=== PATIENT | female | born 1945 | race Caucasian/White ===

== ENCOUNTER → 2017-07-30 | Outpatient (CLI) | payer OTHER | LOC: FIMAGING 09:04 | DX: Z12.31 Encounter for screening mammogram for malignant neoplasm of breast (principal) ==

== ENCOUNTER 2017-09-07 22:17 | Emergency (ER) | payer OTHER ==
--- NOTE | 2017-09-07 22:26 | EDPHY ---
H & P Stated Complaint: nausea and vomiting Time Seen by Provider: 09/07/17 22:25 HPI/ROS: HPI The patient presents brought in by ambulance for abdominal pain, nausea and vomiting which began at about 6:00 p.m. Tonight after returning from work. She initially developed intermittent crampy upper abdominal pain and then had about 5-6 episodes of forceful vomiting which was nonbloody and nonbilious. Symptoms continued for several hours and were severe. She called 911. She is transported here by paramedics. She received Zofran 4 mg ODT and now is feeling much better. She currently denies any nausea, vomiting, abdominal pain. She has not had any fever or diarrhea. She has not any chest pain or shortness of breath. She denies any sick contacts, new medications, recent travel.. REVIEW OF SYSTEMS Constitutional: No fever, no chills. Eyes: No discharge. ENT: No sore throat. Cardiovascular: No chest pain, no palpitations. Respiratory: No cough, no shortness of breath. Gastrointestinal: See HPI Genitourinary: No hematuria. Musculoskeletal: No back pain. Skin: No rashes. Neurological: No headache. PMHx: History of hyperlipidemia Soc Hx: Lives at home with her PHYSICAL General Appearance: Alert, no distress Eyes: Pupils equal and round no pallor or injection ENT, Mouth: Mucous membranes moist Respiratory: There are no retractions, lungs are clear to auscultation Cardiovascular: Regular rate and rhythm Gastrointestinal: Abdomen is soft and non-tender, no masses, bowel sounds normal Neurological: A&O, moves all extremities Skin: Warm and dry, no rashes Musculoskeletal: Neck is supple non tender Extremities: symmetrical, full range of motion Psychiatric: Patient is oriented X 3, there is no agitation Source: Patient, EMS Exam Limitations: No limitations Constitutional: Initial Vital Signs Temperature (C) 36.5 C 09/07/17 22:25 Heart Rate 68 09/07/17 22:25 Respiratory Rate 16 09/07/17 22:25 Blood Pressure 132/72 H 09/07/17 22:25 O2 Sat (%) 94 09/07/17 22:25 O2 Delivery Mode Room Air Allergies/Adverse Reactions: Sulfa (Sulfonamide Antibiotics) Allergy (Verified 09/07/17 22:33) Home Medications: Medication Instructions Recorded Lipitor 09/07/17 Medical Decision Making Differential Diagnosis: This is a 71-year-old relatively healthy female who is brought in by ambulance from home for several hours of nausea, vomiting, crampy upper abdominal pain. On arrival, vital signs are normal, she is well-appearing and hydrated, her abdominal exam is benign. She is feeling much better. Differential diagnosis includes viral gastroenteritis, toxin mediated enterocolitis, gastritis, pancreatitis, biliary colic. In the emergency department, labs were checked. These revealed signs of dehydration with elevated BUN and slight anion gap. She also had a leukocytosis but appeared hemoconcentrated. She felt well for her in tire stay in the emergency department and had no recurrence symptoms whatsoever. She was able to tolerate fluids and crackers in the emergency department without any difficulty. I feel she is suitable to be discharged home. She is in agreement with this plan. - Data Points Laboratory Results: Laboratory Results 09/07/17 22:35 09/07/17 22:35 09/07/17 09/07/17 22:35 22:35 WBC 14.34 10^3/uL H 10^3/uL (3.80-9.50) RBC 5.45 10^6/uL H 10^6/uL (4.18-5.33) Hgb 16.5 g/dL H g/dL (12.6-16.3) Hct 48.1 % H % (38.0-47.0) MCV 88.3 fL fL (81.5-99.8) MCH 30.3 pg pg (27.9-34.1) MCHC 34.3 g/dL g/dL (32.4-36.7) RDW 13.2 % % (11.5-15.2) Plt Count 257 10^3/uL 10^3/uL (150-400) MPV 11.0 fL fL (8.7-11.7) Neut % (Auto) 70.6 % % (39.3-74.2) Lymph % (Auto) 21.3 % % (15.0-45.0) [place] % (Auto) 6.3 % % (4.5-13.0) Eos % (Auto) 1.3 % % (0.6-7.6) Baso % (Auto) 0.3 % % (0.3-1.7) Nucleat RBC Rel Count 0.0 % % (0.0-0.2) Absolute Neuts (auto) 10.12 10^3/uL H 10^3/uL (1.70-6.50) Absolute Lymphs (auto) 3.06 10^3/uL H 10^3/uL (1.00-3.00) Absolute Monos (auto) 0.90 10^3/uL H 10^3/uL (0.30-0.80) Absolute Eos (auto) 0.18 10^3/uL 10^3/uL (0.03-0.40) Absolute Basos (auto) 0.05 10^3/uL 10^3/uL (0.02-0.10) Absolute Nucleated RBC 0.00 10^3/uL 10^3/uL (0-0.01) Immature Gran % 0.2 % % (0.0-1.1) Immature Gran # 0.03 10^3/uL 10^3/uL (0.00-0.10) Sodium 138 mEq/L mEq/L (135-145) Potassium 4.6 mEq/L mEq/L (3.5-5.2) Chloride 99 mEq/L mEq/L (97-110) Carbon Dioxide 22 mEq/l mEq/l (22-31) Anion Gap 17 mEq/L H mEq/L (8-16) BUN 29 mg/dL H mg/dL (7-23) Creatinine 0.8 mg/dL mg/dL (0.6-1.0) Estimated GFR > 60 Glucose 111 mg/dL H mg/dL (70-100) Calcium 10.4 mg/dL mg/dL (8.5-10.4) Total Bilirubin 0.7 mg/dL mg/dL (0.1-1.4) Conjugated Bilirubin 0.5 mg/dL mg/dL (0.0-0.5) Unconjugated Bilirubin 0.2 mg/dL mg/dL (0.0-1.1) AST 34 IU/L IU/L (14-46) ALT 43 IU/L IU/L (9-52) Alkaline Phosphatase 118 IU/L IU/L (38-126) Total Protein 8.3 g/dL H g/dL (6.3-8.2) Albumin 5.0 g/dL g/dL (3.5-5.0) Lipase 65 IU/L IU/L (23-300) Departure - Departure Disposition: Home, Routine, Self-Care Clinical Impression: Upper abdominal pain Vomiting Qualifiers: Vomiting type: unspecified Vomiting Intractability: non-intractable Nausea presence: with nausea Qualified Code(s): R11.2 - Nausea with vomiting, unspecified Condition: Good Instructions: Acute Nausea and Vomiting (ED), Ondansetron (By mouth) Additional Instructions: The cause of your vomiting and abdominal pain could be a stomach virus or food poisoning. Because of this I would like for you to have a bland diet with plenty of fluids until your feeling better. You should return to the emergency department if you are worse in any way. Referrals: TOR CARNEY [Primary Care Provider] - As per Instructions
[2017-09-07 22:33] VITALS: PULSE 68; TEMP 97.7
[2017-09-07 22:45] LABS: PLATELET COUNT 257 10^3/uL (150-400)
[2017-09-07] MEDS ORDERED: ONDANSETRON 4MG PREPACK#2 BTL TAKEHOME ONE (23:32)
[2017-09-07 23:33] VITALS: BP 133/73; RESP 18; O2SAT 92
== END 2017-09-07 23:44 | disposition home or self-care (01) ==
LOC: EDUNIT#
DX: R11.2 Nausea with vomiting, unspecified (principal); R10.10 Upper abdominal pain, unspecified

== ENCOUNTER → 2018-08-22 | Outpatient (CLI) | payer OTHER | LOC: BMCIMAGING 14:33 | PROVIDERS: ATTEND Internal Medicine | DX: J40 Bronchitis, not specified as acute or chronic (principal) ==

== ENCOUNTER → 2018-08-26 | Outpatient (CLI) | payer OTHER | LOC: FIMAGING 08:43 | PROVIDERS: ATTEND Internal Medicine | DX: M89.8X8 Other specified disorders of bone, other site (principal); M47.814 Spondylosis without myelopathy or radiculopathy, thoracic region ==

== ENCOUNTER → 2018-10-07 | Outpatient (CLI) | payer OTHER | LOC: FIMAGING 08:17 | PROVIDERS: ATTEND Internal Medicine | DX: Z13.820 Encounter for screening for osteoporosis (principal); M85.89 Other specified disorders of bone density and structure, multiple sites ==